=== PATIENT | male | born 1955 | race Caucasian/White ===

== ENCOUNTER → 2019-08-26 | Outpatient (CLI) | payer MEDICARE, OTHER ==
--- NOTE | 2019-08-27 11:20 | REP ---
NUCLEAR THYROID UPTAKE AND SCAN: Following the oral administration of 317 microcuries iodine 123 of sodium iodine, thyroid uptake is measured. The 24 hour uptake is 8.58% which is below the normal range of 25-35%. Thyroid scan shows mild enlargement of both lobes of the thyroid. There may be a subtle focus of increased uptake in the medial right lower pole. Otherwise there is no other scintigraphic evidence of hot or cold nodule bilaterally. Electronically Signed by Minh Cuellar MD 08/27/2019 02:06 P
== END ==
LOC: M RAD 08:23
PROVIDERS: ATTEND Internal Medicine Endocrinology, Diabetes & Metabolism
DX: E05.90 Thyrotoxicosis, unspecified without thyrotoxic crisis or storm (principal)
CPT/HCPCS: 78012; A9516